=== PATIENT | female | born 1935 | race Asian ===

== ENCOUNTER 2017-11-20 11:33 | Inpatient (IN) | payer OTHER ==
[~2017-11-20] VITALS: Ht 170.2 cm; Wt 56.2 kg
[2017-11-20 13:54] LABS: BASOPHIL % 0.5 % (0-2)
[2017-11-20 13:56] LABS: PLATELET COUNT 80 x10^3mcL (130-400); RED CELL DISTRIBUTION WIDTH 14.8 % (11.5-14.5)
[2017-11-20 14:08] LABS: CALCIUM 8.5 mg/dL (8.5-10.1); CARBON DIOXIDE 21.1 mmol/L (21-32); CHLORIDE SERUM 109 mmol/L (98-107); CREATININE SERUM 1.6 mg/dL (0.6-1.0); GLUCOSE SERUM 105 mg/dL (74-106); SODIUM SERUM 143 mmol/L (136-145)
[2017-11-20 14:12] LABS: ALKALINE PHOSPHATASE 127 U/L (46-116); ALT/SGPT 74 U/L (14-59); AST/SGOT 79 U/L (15-37); BILIRUBIN TOTAL 1.8 mg/dL (0.20-1.00)
[2017-11-20 14:19] LABS: TOTAL PROTEIN, SERUM 5.2 g/dL (6.4-8.2)
[2017-11-20 17:25] LABS: MAGNESIUM 1.9 mg/dL (1.8-2.4); PHOSPHOROUS 4.1 mg/dL (2.5-4.9)
[2017-11-20 17:36] LABS: T3 TOTAL 0.56 ng/mL
[2017-11-20 18:06] LABS: FREE T4 1.2 ng/dL (0.76-1.46); FREE THYROXINE INDEX 2.3 ug/dL (1.4-4.5); T4(THYROXINE) 5.3 ug/dL (4.7-13.3)
[2017-11-20 18:40] VITALS: BP 121/74
[2017-11-20] MEDS ORDERED: AMLODIPINE BES2.5 M1 PO ×2 (20:50→21:15)
[2017-11-20] MEDS ORDERED: ISOSORBIDE MONO30 MG PO (20:55)
[2017-11-20] MEDS ORDERED: DIOVAN160 MG PO (20:56)
[2017-11-20] MEDS ORDERED: CARVEDILOL12.5 M1 PO (21:07)
[2017-11-20] MEDS ORDERED: ELIQUIS2.5 MG PO (21:08)
[2017-11-20] MEDS ORDERED: ALLOPURINOL100 MG PO (21:08)
[2017-11-20] MEDS ORDERED: LEVOTHYROXINE0.05 M2 PO (21:09)
[2017-11-20 21:52] VITALS: BP 121/74
[2017-11-20 22:37] VITALS: BP 154/83
[2017-11-21 02:48] LABS: UA SPECIFIC GRAVITY 1.025 (1.005-1.035); microscopic required? YES; urine erythrocyte TRACE (NEGATIVE)
[2017-11-21 06:44] VITALS: BP 120/70
[2017-11-21 07:06] LABS: CARBON DIOXIDE 21.8 mmol/L (21-32); CHLORIDE SERUM 111 mmol/L (98-107); CREATININE SERUM 1.6 mg/dL (0.6-1.0); GLUCOSE SERUM 100 mg/dL (74-106); SODIUM SERUM 144 mmol/L (136-145)
[2017-11-21 07:25] LABS: PLATELET COUNT 76 x10^3mcL (130-400); RED CELL DISTRIBUTION WIDTH 14.8 % (11.5-14.5)
[2017-11-21 11:46] LABS: SEGMENTED NEUTROPHILS 60 % (37-75)
[2017-11-21 11:47] LABS: BAND NEUTROPHIL 2 % (0-10); MONOCYTE 17 % (0-7); rbc morphology (normal/abnorm) NORMAL (NORMAL)
[2017-11-21 13:18] VITALS: BP 126/67
[2017-11-21 16:34] VITALS: BP 137/78
[2017-11-21 17:06] VITALS: BP 140/98
[2017-11-21 17:43] VITALS: Ht 170.2 cm; Wt 56.2 kg
[2017-11-21 20:00] VITALS: BP 142/77
[2017-11-22 05:00] VITALS: BP 117/69
[2017-11-22 06:34] LABS: CALCIUM 7.9 mg/dL (8.5-10.1); CARBON DIOXIDE 23.3 mmol/L (21-32); CHLORIDE SERUM 111 mmol/L (98-107); CREATININE SERUM 2.1 mg/dL (0.6-1.0); GLUCOSE SERUM 98 mg/dL (74-106); POTASSIUM SERUM 4.3 mmol/L (3.5-5.1); SODIUM SERUM 145 mmol/L (136-145); URIC ACID 7.7 mg/dL (2.6-6.0)
[2017-11-22 07:16] LABS: PLATELET COUNT 74 x10^3mcL (130-400); RED CELL DISTRIBUTION WIDTH 15.1 % (11.5-14.5)
[2017-11-22 09:29] VITALS: BP 159/51
[2017-11-22 11:56] LABS: SEGMENTED NEUTROPHILS 16 % (37-75)
[2017-11-22 11:57] LABS: MONOCYTE 30 % (0-7); PLATELET MORPHOLOGY LARGE PLATELET SEEN; rbc morphology (normal/abnorm) ABNORMAL (NORMAL)
[2017-11-22 13:30] VITALS: BP 147/71
[2017-11-22 17:18] VITALS: BP 140/83
[2017-11-22 21:07] VITALS: BP 132/75
[2017-11-23] VITALS (7 sets, daily range): BP systolic 70–144; BP diastolic 38–77
== END 2017-11-24 | disposition expired | DRG 177 ==
LOC: ED 11:33 → DU 16:04 → IC 11-23 18:10
PROVIDERS: Emergency Medicine; Family Medicine
PROC: 5A12012 Performance of Cardiac Output, Single, Manual (ICD-10-PCS; principal; 2017-11-20)
PROC: 0BH17EZ Insertion of Endotracheal Airway into Trachea, Via Natural or Artificial Opening (ICD-10-PCS; 2017-11-20)
DX: J69.0 Pneumonitis due to inhalation of food and vomit (principal); N17.0 Acute kidney failure with tubular necrosis; J96.01 Acute respiratory failure with hypoxia; I50.43 Acute on chronic combined systolic (congestive) and diastolic (congestive) heart failure; E44.0 Moderate protein-calorie malnutrition; I47.2 Ventricular tachycardia; I11.0 Hypertensive heart disease with heart failure; G90.8 Other disorders of autonomic nervous system; D69.6 Thrombocytopenia, unspecified; R73.03 Prediabetes; R31.9 Hematuria, unspecified; N20.0 Calculus of kidney; F22 Delusional disorders; E86.0 Dehydration; J10.1 Influenza due to other identified influenza virus with other respiratory manifestations; G30.9 Alzheimer's disease, unspecified; F02.80 Dementia in other diseases classified elsewhere, unspecified severity, without behavioral disturbance, psychotic disturbance, mood disturbance, and anxiety; E04.1 Nontoxic single thyroid nodule; I46.9 Cardiac arrest, cause unspecified; M10.9 Gout, unspecified; Z86.73 Personal history of transient ischemic attack (TIA), and cerebral infarction without residual deficits; Z68.26 Body mass index [BMI] 26.0-26.9, adult; Z95.0 Presence of cardiac pacemaker; Z91.14 Patient's other noncompliance with medication regimen
CPT/HCPCS: 36600; 83880; 84439; 87804; 94150; 97110-GP; 97530-GP; A4628; J0171; J0456; J0461; J0696; J1956; J2250; J2405; J3010; J3490; J7030; J7050; J7620; J8597; Q0092